=== PATIENT | female | born 1935 | race Caucasian/White ===

== ENCOUNTER 2020-05-09 17:52 | Observation (INO) | payer MEDICARE, OTHER ==
[~2020-05-09] VITALS: Ht 157.5 cm; Wt 93.4 kg
[~2020-05-09 17:52] MED LIST: AMLOD-VALSA-HC1 EACH PO; AMOXICILLIN500 MG PO; ASPIR-LOW81 MG PO; BUMETANIDE1 MG PO; CEFUROXIME250 MG PO; CLARITIN10 M2 PO; CLOPIDOGREL75 MG PO; COLACE 100MG C100 MG PO; COREG 25MG TAB25 MG PO; COREG12.5 MG PO; COREG25 MG PO; COREG6.25 MG PO; COUMADIN 1MG TAB1 MG PO; COUMADIN 5MG TAB5 MG PO; COUMADIN2 MG PO; COUMADIN2.5 MG PO; CYMBALTA 30 MG30 MG PO; CYMBALTA60 MG PO; DITROPAN 5 MG TA5 MG PO; DOXYCYCLINE HY100 MG PO; ELIQUIS2.5 MG PO; FERROUS SULFAT324 MG PO; FERROUS SULFAT325 M2 PO; FERROUS SULFAT325 MG PO; GLUCOTROL5 MG PO; HUMIBID LA TAB600 MG PO; IMURAN TAB 50 M50 MG PO; IMURAN50 MG PO; JANUVIA50 MG PO; K-DUR TAB 10 M10 MEQ PO; K-DUR TAB 20 M20 MEQ PO; LASIX 40 MG TAB40 MG PO; LEVAQUIN250 MG PO; LIPITOR TAB 2020 MG PO; NEURONTIN 100100 MG PO; NORVASC 5 MG TAB5 MG PO; NOVOLOG100 UNIT/1 SC; PLAVIX 75 MG TA75 MG PO; POLYETHYLENE GL17 GM PO; PROAIR HFA8.5 GM INH; PROTONIX40 MG PO; RENO CAPS SOFTGE1 MG PO; ROBITUSSIN AC PO; SINGULAIR10 MG PO; TRAMADOL HCL50 MG PO; TYLENOL 325MG325 MG PO; VITAMIN B-1000 MCG/M SQ; VITAMIN D250000 UNIT PO; WARFARIN SODIUM5 MG PO; ZOFRAN4 MG PO; [UNRECOGNIZED DRUG - CODE] SC
[2020-05-09 19:31] LABS: HEMOGLOBIN 10.7 gm/dl (12.3-15.3); RED BLOOD COUNT 3.29 M/UL (4.00-5.10); WHITE BLOOD COUNT 7.9 K/UL (4.5-11.0)
[2020-05-10 03:20] LABS: HEMOGLOBIN 9.8 gm/dl (12.3-15.3); RED BLOOD COUNT 3.03 M/UL (4.00-5.10); WHITE BLOOD COUNT 6.5 K/UL (4.5-11.0)
== END 2020-05-10 12:00 | disposition home or self-care (01) ==
LOC: ER1 17:52 → CDU 21:30 → MED SURG 4 21:30
PROVIDERS: Emergency Medicine; ADMIT Internal Medicine
DX: T82.838A Hemorrhage due to vascular prosthetic devices, implants and grafts, initial encounter (principal); I13.2 Hypertensive heart and chronic kidney disease with heart failure and with stage 5 chronic kidney disease, or end stage renal disease; E11.22 Type 2 diabetes mellitus with diabetic chronic kidney disease; N18.6 End stage renal disease; I50.32 Chronic diastolic (congestive) heart failure; I48.20 Chronic atrial fibrillation, unspecified; E78.5 Hyperlipidemia, unspecified; E66.9 Obesity, unspecified; K21.9 Gastro-esophageal reflux disease without esophagitis; Z86.73 Personal history of transient ischemic attack (TIA), and cerebral infarction without residual deficits; Z74.01 Bed confinement status; Z68.37 Body mass index [BMI] 37.0-37.9, adult; Z86.718 Personal history of other venous thrombosis and embolism; Z20.822 Contact with and (suspected) exposure to COVID-19; Z86.711 Personal history of pulmonary embolism; Z99.2 Dependence on renal dialysis; Z79.01 Long term (current) use of anticoagulants; Z79.899 Other long term (current) drug therapy; Y83.2 Surgical operation with anastomosis, bypass or graft as the cause of abnormal reaction of the patient, or of later complication, without mention of misadventure at the time of the procedure
CPT/HCPCS: 36415; 80048; 80053; 85025; 85610; 85730; 96374; 99284; C9132; G0378; J3430; U0002

== ENCOUNTER 2021-05-06 16:41 | Inpatient (IN) | payer MEDICARE, OTHER ==
[~2021-05-06] VITALS: Ht 157.5 cm; Wt 85.3 kg
[~2021-05-06 16:41] MED LIST changes: +AMLODIPINE BESYL5 MG PO; -COUMADIN2.5 MG PO; +LACTULOSE10 GM/15 M PO; +LEVOFLOXACIN500 MG PO; +WARFARIN SODIUM2 MG PO
[2021-05-06 18:30] LABS: HEMOGLOBIN 9.6 gm/dl (12.3-15.3); RED BLOOD COUNT 3.14 M/UL (4.00-5.10); WHITE BLOOD COUNT 5.4 K/UL (4.5-11.0)
[2021-05-07] MEDS ORDERED: CLOPIDOGREL75 MG PO (10:41)
[2021-05-08 05:06] LABS: HEMOGLOBIN 9.3 gm/dl (12.3-15.3); RED BLOOD COUNT 3.01 M/UL (4.00-5.10); WHITE BLOOD COUNT 5.6 K/UL (4.5-11.0)
[2021-05-09 02:52] LABS: HEMOGLOBIN 9.2 gm/dl (12.3-15.3); RED BLOOD COUNT 3.02 M/UL (4.00-5.10)
[2021-05-09 02:53] LABS: WHITE BLOOD COUNT 7.3 K/UL (4.5-11.0)
[2021-05-10 05:59] LABS: HEMOGLOBIN 9.3 gm/dl (12.3-15.3); RED BLOOD COUNT 3.04 M/UL (4.00-5.10); WHITE BLOOD COUNT 8.3 K/UL (4.5-11.0)
[2021-05-11 05:52] LABS: RED BLOOD COUNT 2.91 M/UL (4.00-5.10); WHITE BLOOD COUNT 8.7 K/UL (4.5-11.0)
--- NOTE | 2021-05-11 13:02 | NUR ---
report called to [facility] , awaiting ems for transfer
== END 2021-05-11 14:10 | disposition short-term general hospital (02) | DRG 314 ==
LOC: ER1 16:41 → CDU 21:35 → MED SURG 4 21:35
PROVIDERS: Internal Medicine; Internal Medicine Nephrology; Nurse Practitioner; ADMIT Internal Medicine
PROC: 02HV33Z Insertion of Infusion Device into Superior Vena Cava, Percutaneous Approach (ICD-10-PCS; principal; 2021-05-07)
PROC: B548ZZA Ultrasonography of Superior Vena Cava, Guidance (ICD-10-PCS; 2021-05-07)
PROC: 5A1D70Z Performance of Urinary Filtration, Intermittent, Less than 6 Hours Per Day (ICD-10-PCS; 2021-05-07)
PROC: 5A1D70Z Performance of Urinary Filtration, Intermittent, Less than 6 Hours Per Day (ICD-10-PCS; 2021-05-10)
DX: T82.868A Thrombosis due to vascular prosthetic devices, implants and grafts, initial encounter (principal); N18.6 End stage renal disease; I48.20 Chronic atrial fibrillation, unspecified; Z20.822 Contact with and (suspected) exposure to COVID-19; I50.32 Chronic diastolic (congestive) heart failure; I13.2 Hypertensive heart and chronic kidney disease with heart failure and with stage 5 chronic kidney disease, or end stage renal disease; I27.20 Pulmonary hypertension, unspecified; K21.9 Gastro-esophageal reflux disease without esophagitis; E11.22 Type 2 diabetes mellitus with diabetic chronic kidney disease; E78.5 Hyperlipidemia, unspecified; Y83.8 Other surgical procedures as the cause of abnormal reaction of the patient, or of later complication, without mention of misadventure at the time of the procedure; Z99.2 Dependence on renal dialysis; Z79.01 Long term (current) use of anticoagulants; Z79.4 Long term (current) use of insulin; Z86.73 Personal history of transient ischemic attack (TIA), and cerebral infarction without residual deficits; Z87.19 Personal history of other diseases of the digestive system; Z74.01 Bed confinement status; Z86.718 Personal history of other venous thrombosis and embolism; Z86.711 Personal history of pulmonary embolism; Z87.01 Personal history of pneumonia (recurrent); Z90.49 Acquired absence of other specified parts of digestive tract; Z82.49 Family history of ischemic heart disease and other diseases of the circulatory system
CPT/HCPCS: 36415; 71045; 80048; 80053; 82962; 83735; 85025; 85610; 90935; 90937; 93005; 99285; C1752; J2405; J3475; U0002

== ENCOUNTER 2021-07-02 12:49 | Emergency (ER) | payer MEDICARE, OTHER ==
[2021-07-02 14:18] LABS: HEMOGLOBIN 11.3 gm/dl (12.3-15.3); RED BLOOD COUNT 3.46 M/UL (4.00-5.10); WHITE BLOOD COUNT 7.3 K/UL (4.5-11.0)
== END 2021-07-02 17:59 | disposition short-term general hospital (02) ==
LOC: ER1 12:49
PROVIDERS: Physician Assistant
DX: T82.41XA Breakdown (mechanical) of vascular dialysis catheter, initial encounter (principal); I48.91 Unspecified atrial fibrillation; I10 Essential (primary) hypertension; N28.9 Disorder of kidney and ureter, unspecified
CPT/HCPCS: 80053; 85025; 99284

== ENCOUNTER 2021-09-14 14:06 | Inpatient (IN) | payer MEDICARE, OTHER ==
[~2021-09-14] VITALS: Ht 157.5 cm; Wt 104.8 kg
[2021-09-14 15:20] LABS: HEMOGLOBIN 13.9 gm/dl (12.3-15.3); RED BLOOD COUNT 4.52 M/UL (4.00-5.10); WHITE BLOOD COUNT 14.8 K/UL (4.5-11.0)
[2021-09-14] MEDS ORDERED: AMLODIPINE BESYL5 MG PO (18:43)
[2021-09-14] MEDS ORDERED: WARFARIN SODIUM3 MG PO (18:43)
[2021-09-15 05:12] LABS: HEMOGLOBIN 10.9 gm/dl (12.3-15.3); RED BLOOD COUNT 3.6 M/UL (4.00-5.10); WHITE BLOOD COUNT 10.6 K/UL (4.5-11.0)
[2021-09-15] MEDS ORDERED: AMOX TR-K CLV1 EAC3 PO (11:42)
--- NOTE | 2021-09-15 14:23 | NUR ---
R ROMARIO ARRIVED DOWNSTAIRS. I WAS NOT AWARE THEY HAD BEEN CALLED BY CASE MANAGEMENT. IT TOOK A FEW MINUTES TO GET HER READY AND THE GIRISH LIFT HAD TO BE USED TO TRANSFER HER TO HER WHEELCHAIR. TRANSPORTER CAME TO TAKE HER DOWN. DR DE JESUS HAD NOT MADE ROUNDS TO ASK IF HE WANTED THE CHEST WALL DIALYSIS CATHETER REMOVED.
== END 2021-09-15 14:22 | disposition home health service (06) | DRG 871 ==
LOC: ER1 14:06 → M/S 17:34 → CDU 17:34 → M/S 23:36
PROVIDERS: Emergency Medicine; ADMIT Internal Medicine
DX: A41.9 Sepsis, unspecified organism (principal); J18.9 Pneumonia, unspecified organism; N18.6 End stage renal disease; Z20.822 Contact with and (suspected) exposure to COVID-19; I12.0 Hypertensive chronic kidney disease with stage 5 chronic kidney disease or end stage renal disease; Z68.41 Body mass index [BMI] 40.0-44.9, adult; E66.01 Morbid (severe) obesity due to excess calories; W01.0XXA Fall on same level from slipping, tripping and stumbling without subsequent striking against object, initial encounter; E11.22 Type 2 diabetes mellitus with diabetic chronic kidney disease; F17.210 Nicotine dependence, cigarettes, uncomplicated; D69.6 Thrombocytopenia, unspecified; Z74.01 Bed confinement status; Z99.2 Dependence on renal dialysis; Z86.73 Personal history of transient ischemic attack (TIA), and cerebral infarction without residual deficits; Z90.49 Acquired absence of other specified parts of digestive tract
CPT/HCPCS: 36415; 70450; 71045; 72128; 72131; 73030; 73060; 73070; 73100; 80053; 80202; 82550; 82553; 82962; 83036; 83540; 83550; 83605; 83735; 83880; 84100; 84484; 85025; 85027; 85610; 85652; 86140; 87040; 93005; 96365; 96366; 96367; 96375; 97166; 99285; J0696; J2185; J2405; J3370; J7070

== ENCOUNTER 2021-09-27 08:36 | Inpatient (IN) | payer MEDICARE, OTHER ==
[~2021-09-27] VITALS: Ht 157.5 cm; Wt 93.9 kg
[~2021-09-27 08:36] MED LIST changes: +AMOX TR-K CLV1 EAC3 PO; +WARFARIN SODIU2.5 MG PO
[2021-09-27 09:46] LABS: HEMOGLOBIN 9.6 gm/dl (12.3-15.3); RED BLOOD COUNT 3.14 M/UL (4.00-5.10); WHITE BLOOD COUNT 7.5 K/UL (4.5-11.0)
[2021-09-28 06:57] LABS: HEMOGLOBIN 8.7 gm/dl (12.3-15.3); RED BLOOD COUNT 2.79 M/UL (4.00-5.10); WHITE BLOOD COUNT 7.9 K/UL (4.5-11.0)
[2021-09-29 06:00] LABS: HEMOGLOBIN 9.4 gm/dl (12.3-15.3); RED BLOOD COUNT 2.96 M/UL (4.00-5.10)
[2021-09-30 09:04] LABS: HEMOGLOBIN 8.8 gm/dl (12.3-15.3); RED BLOOD COUNT 2.87 M/UL (4.00-5.10); WHITE BLOOD COUNT 6.8 K/UL (4.5-11.0)
[2021-10-01 04:33] LABS: HEMOGLOBIN 8.8 gm/dl (12.3-15.3); RED BLOOD COUNT 2.84 M/UL (4.00-5.10)
[2021-10-01 04:40] LABS: WHITE BLOOD COUNT 9.2 K/UL (4.5-11.0)
--- NOTE | 2021-10-01 10:38 | NUR ---
CONFIRMED WITH ZEE LUNSFORD. PT CLEARED TO HAVE CT GUIDED BIOPSY. CT DEPT MADE AWARE. NAD
--- NOTE | 2021-10-01 10:44 | NUR ---
PT BACK TO ROOM FROM BIOPSY. OR NURSE IN ROOM TO MONITOR PT. NAD.
--- NOTE | 2021-10-01 11:48 | NUR ---
NAD, VSS, PT RESTING WITH EYES CLOSED.
--- NOTE | 2021-10-01 13:49 | NUR ---
NAD, VSS, NO S/S OF BLEEDING NOTED AT BIOPSY INSERTION SITE. PT AOX4 TALKING ON PHONE TO FAMILY.
[2021-10-03 15:52] LABS: HEMOGLOBIN 10.2 gm/dl (12.3-15.3); RED BLOOD COUNT 3.28 M/UL (4.00-5.10); WHITE BLOOD COUNT 28.4 K/UL (4.5-11.0)
[2021-10-04 04:12] LABS: HEMOGLOBIN 8.2 gm/dl (12.3-15.3); RED BLOOD COUNT 2.65 M/UL (4.00-5.10)
[2021-10-04 15:52] LABS: BORDETELLA PARAPERTUSSIS Not Detected (Not Detectd); BORDETELLA PERTUSSIS Not Detected (Not Detectd); CHLAMYDIA PNEUMONIAE Not Detected (Not Detectd); CORONAVIRUS HKU1 Not Detected (Not Detectd); CORONAVIRUS NL63 Not Detected (Not Detectd); CORONAVIRUS OC43 Not Detected (Not Detectd); CORONOAVIRUS 229E Not Detected (Not Detectd); HUMAN METAPNEUMOVIRUS Not Detected (Not Detectd); HUMAN RHINOVIRUS/ENTEROVIRUS Not Detected (Not Detectd); INFLUENZA A Not Detected (Not Detectd); INFLUENZA B Not Detected (Not Detectd); MYCOPLASMA PNEUMONIAE Not Detected (Not Detectd); PARAINFLUENZA VIRUS 1 Not Detected (Not Detectd); PARAINFLUENZA VIRUS 2 Not Detected (Not Detectd); PARAINFLUENZA VIRUS 3 Not Detected (Not Detectd); PARAINFLUENZA VIRUS 4 Not Detected (Not Detectd); RESPIRATORY SYNCYTIAL VIRUS Not Detected (Not Detectd)
[2021-10-04 15:56] LABS: WHITE BLOOD COUNT 29.9 K/UL (4.5-11.0)
[2021-10-04 16:15] LABS: HEMOGLOBIN 10.8 gm/dl (12.3-15.3); RED BLOOD COUNT 3.55 M/UL (4.00-5.10)
[2021-10-04 17:20] LABS: SARS-CoV-2 DETECTED (Not Detectd)
[2021-10-05 04:43] LABS: HEMOGLOBIN 10.5 gm/dl (12.3-15.3); RED BLOOD COUNT 3.41 M/UL (4.00-5.10); WHITE BLOOD COUNT 25.3 K/UL (4.5-11.0)
[2021-10-06 03:05] LABS: HEMOGLOBIN 9.2 gm/dl (12.3-15.3)
[2021-10-06 03:09] LABS: RED BLOOD COUNT 2.98 M/UL (4.00-5.10); WHITE BLOOD COUNT 13.3 K/UL (4.5-11.0)
[2021-10-07 02:50] LABS: HEMOGLOBIN 9.9 gm/dl (12.3-15.3); RED BLOOD COUNT 3.26 M/UL (4.00-5.10)
[2021-10-07 03:34] LABS: WHITE BLOOD COUNT 16.9 K/UL (4.5-11.0)
[2021-10-08 01:46] LABS: RED BLOOD COUNT 3.56 M/UL (4.00-5.10); WHITE BLOOD COUNT 17.7 K/UL (4.5-11.0)
[2021-10-09 03:08] LABS: HEMOGLOBIN 10.2 gm/dl (12.3-15.3); RED BLOOD COUNT 3.26 M/UL (4.00-5.10)
[2021-10-09 03:10] LABS: WHITE BLOOD COUNT 10.9 K/UL (4.5-11.0)
[2021-10-10 02:01] LABS: HEMOGLOBIN 10.7 gm/dl (12.3-15.3); RED BLOOD COUNT 3.55 M/UL (4.00-5.10)
[2021-10-10 02:40] LABS: WHITE BLOOD COUNT 15.4 K/UL (4.5-11.0)
[2021-10-11 02:28] LABS: HEMOGLOBIN 10.8 gm/dl (12.3-15.3); RED BLOOD COUNT 3.58 M/UL (4.00-5.10); WHITE BLOOD COUNT 17.6 K/UL (4.5-11.0)
[2021-10-11] MEDS ORDERED: MIDODRINE HCL2.5 MG PO (16:48)
[2021-10-11] MEDS ORDERED: AMIODARONE HCL200 MG PO (16:48)
== END 2021-10-11 18:06 | disposition home or self-care (01) | DRG 823 ==
LOC: ER1 08:36 → MED SURG 4 12:58 → PROG CARE 12:58 → CDU 12:58 → MED SURG 4 14:06 → PROG CARE 10-04 02:15
PROVIDERS: Internal Medicine; Internal Medicine Infectious Disease; Internal Medicine Nephrology; Physician Assistant; Physician Assistant Medical; ADMIT Internal Medicine
PROC: 3E043XZ Introduction of Vasopressor into Central Vein, Percutaneous Approach (ICD-10-PCS; principal; 2021-09-27)
PROC: 3E03329 Introduction of Other Anti-infective into Peripheral Vein, Percutaneous Approach (ICD-10-PCS; 2021-09-27)
PROC: 07BD3ZX Excision of Aortic Lymphatic, Percutaneous Approach, Diagnostic (ICD-10-PCS; 2021-09-27)
PROC: 8E0ZXY6 Isolation (ICD-10-PCS; 2021-09-27)
PROC: 5A1D70Z Performance of Urinary Filtration, Intermittent, Less than 6 Hours Per Day (ICD-10-PCS; 2021-09-28)
PROC: 5A1D70Z Performance of Urinary Filtration, Intermittent, Less than 6 Hours Per Day (ICD-10-PCS; 2021-09-30)
PROC: 5A1D70Z Performance of Urinary Filtration, Intermittent, Less than 6 Hours Per Day (ICD-10-PCS; 2021-10-02)
PROC: 30233N1 Transfusion of Nonautologous Red Blood Cells into Peripheral Vein, Percutaneous Approach (ICD-10-PCS; 2021-10-04)
PROC: 5A1D70Z Performance of Urinary Filtration, Intermittent, Less than 6 Hours Per Day (ICD-10-PCS; 2021-10-05)
PROC: 5A1D70Z Performance of Urinary Filtration, Intermittent, Less than 6 Hours Per Day (ICD-10-PCS; 2021-10-08)
PROC: 5A1D70Z Performance of Urinary Filtration, Intermittent, Less than 6 Hours Per Day (ICD-10-PCS; 2021-10-11)
DX: C85.10 Unspecified B-cell lymphoma, unspecified site (principal); A41.9 Sepsis, unspecified organism; R65.21 Severe sepsis with septic shock; U07.1 COVID-19; J69.0 Pneumonitis due to inhalation of food and vomit; N18.6 End stage renal disease; J96.21 Acute and chronic respiratory failure with hypoxia; J12.82 Pneumonia due to coronavirus disease 2019; J15.9 Unspecified bacterial pneumonia; I48.20 Chronic atrial fibrillation, unspecified; I50.32 Chronic diastolic (congestive) heart failure; I13.2 Hypertensive heart and chronic kidney disease with heart failure and with stage 5 chronic kidney disease, or end stage renal disease; I48.21 Permanent atrial fibrillation; E87.1 Hypo-osmolality and hyponatremia; C78.89 Secondary malignant neoplasm of other digestive organs; D62 Acute posthemorrhagic anemia; L89.152 Pressure ulcer of sacral region, stage 2; L89.322 Pressure ulcer of left buttock, stage 2; L89.312 Pressure ulcer of right buttock, stage 2; E78.5 Hyperlipidemia, unspecified; K21.9 Gastro-esophageal reflux disease without esophagitis; E87.5 Hyperkalemia; R79.1 Abnormal coagulation profile; S30.1XXA Contusion of abdominal wall, initial encounter; D63.1 Anemia in chronic kidney disease; L89.892 Pressure ulcer of other site, stage 2; E11.22 Type 2 diabetes mellitus with diabetic chronic kidney disease; E66.01 Morbid (severe) obesity due to excess calories; R53.81 Other malaise; W18.30XA Fall on same level, unspecified, initial encounter; Z79.01 Long term (current) use of anticoagulants; Z99.2 Dependence on renal dialysis; Z74.01 Bed confinement status; Z86.718 Personal history of other venous thrombosis and embolism; Z86.711 Personal history of pulmonary embolism; Z86.73 Personal history of transient ischemic attack (TIA), and cerebral infarction without residual deficits; Z90.49 Acquired absence of other specified parts of digestive tract; Z80.9 Family history of malignant neoplasm, unspecified; Z84.89 Family history of other specified conditions; Z99.3 Dependence on wheelchair; Z68.34 Body mass index [BMI] 34.0-34.9, adult; Z88.8 Allergy status to other drugs, medicaments and biological substances
CPT/HCPCS: 36415; 36430; 71045; 71260; 72131; 73030; 77012; 80048; 80053; 80202; 82550; 82553; 82607; 82728; 82746; 82962; 83540; 83550; 83605; 83735; 84484; 85025; 85610; 85730; 86140; 86850; 86900; 86901; 86920; 87040; 87081; 87633; 88341; 88342; 88360; 88365; 92526; 92610; 93005; 94640; 94664; 94760; 97161; 99285; A6212; J1100; J1160; J2185; J2250; J2270; J2310; J2370; J2405; J2760; J3010; J3370; J7030; J7070; P9016; P9047; Q9967

== ENCOUNTER 2021-10-15 08:53 | Emergency (ER) | payer MEDICARE, OTHER ==
[~2021-10-15 08:53] MED LIST changes: +AMIODARONE HCL200 MG PO; +MIDODRINE HCL2.5 MG PO
[2021-10-15 09:47] LABS: HEMOGLOBIN 12.2 gm/dl (12.3-15.3); RED BLOOD COUNT 3.91 M/UL (4.00-5.10); WHITE BLOOD COUNT 19.6 K/UL (4.5-11.0)
[2021-10-15] MEDS ORDERED: PERCOCET 5/325 T1 EA PO (12:28)
== END 2021-10-15 13:42 | disposition home or self-care (01) ==
LOC: ER1 08:53
PROVIDERS: Family Medicine
DX: R11.10 Vomiting, unspecified (principal); E11.9 Type 2 diabetes mellitus without complications; I25.10 Atherosclerotic heart disease of native coronary artery without angina pectoris; I10 Essential (primary) hypertension; Z99.2 Dependence on renal dialysis
CPT/HCPCS: 80053; 83605; 83690; 85025; 96374; 99284; J2405

== ENCOUNTER 2021-10-19 07:09 | Observation (INO) | payer MEDICARE, OTHER ==
[~2021-10-19] VITALS: Ht 157.5 cm; Wt 87.1 kg
[~2021-10-19 07:09] MED LIST changes: +PERCOCET 5/325 T1 EA PO
[2021-10-19 08:15] LABS: HEMOGLOBIN 10.7 gm/dl (12.3-15.3); RED BLOOD COUNT 3.52 M/UL (4.00-5.10); WHITE BLOOD COUNT 11.5 K/UL (4.5-11.0)
[2021-10-19 08:43] LABS: BUN/CREATININE RATIO 15 (0-10)
[2021-10-19] MEDS ORDERED: AMLODIPINE BESYL5 MG PO (10:50)
[2021-10-19] MEDS ORDERED: PERCOCET 5/325 T1 EA PO (11:43)
[2021-10-19] MEDS ORDERED: STOOL SOFTENER100 MG PO (11:44)
[2021-10-19] MEDS ORDERED: ACETAMINOPHEN325 MG PO (11:44)
[2021-10-19] MEDS ORDERED: MIRALAX17 GM PO (11:45)
[2021-10-20 05:59] LABS: RED BLOOD COUNT 2.93 M/UL (4.00-5.10); WHITE BLOOD COUNT 9.8 K/UL (4.5-11.0)
[2021-10-21 06:58] LABS: HEMOGLOBIN 10.1 gm/dl (12.3-15.3); WHITE BLOOD COUNT 9.1 K/UL (4.5-11.0)
[2021-10-21 06:59] LABS: RED BLOOD COUNT 3.27 M/UL (4.00-5.10)
[2021-10-21] MEDS ORDERED: GLUTOSE 1537.5 GM PO (10:09)
== END 2021-10-21 12:40 | disposition home or self-care (01) ==
LOC: ER1 07:09 → CDU 09:40 → M/S 10-20 00:16
PROVIDERS: Physician Assistant; Physician Assistant Medical; ADMIT Internal Medicine
DX: E11.649 Type 2 diabetes mellitus with hypoglycemia without coma (principal); I48.20 Chronic atrial fibrillation, unspecified; I13.2 Hypertensive heart and chronic kidney disease with heart failure and with stage 5 chronic kidney disease, or end stage renal disease; E11.22 Type 2 diabetes mellitus with diabetic chronic kidney disease; N18.6 End stage renal disease; I50.32 Chronic diastolic (congestive) heart failure; C83.30 Diffuse large B-cell lymphoma, unspecified site; E78.5 Hyperlipidemia, unspecified; D64.9 Anemia, unspecified; Z99.2 Dependence on renal dialysis; Z86.73 Personal history of transient ischemic attack (TIA), and cerebral infarction without residual deficits; Z86.718 Personal history of other venous thrombosis and embolism
CPT/HCPCS: 36415; 71045; 80048; 80053; 82550; 82553; 82962; 83690; 83735; 84100; 84484; 85025; 85027; 93005; 96374; 96376; 99285; C9113; G0378; P9047

== ENCOUNTER 2021-10-31 16:40 | Inpatient (IN) | payer MEDICARE, OTHER ==
[~2021-10-31] VITALS: Ht 157.5 cm; Wt 85.7 kg
[~2021-10-31 16:40] MED LIST changes: +ACETAMINOPHEN325 MG PO; +GLUTOSE 1537.5 GM PO; +MIRALAX17 GM PO; +STOOL SOFTENER100 MG PO
[2021-10-31 19:47] LABS: HEMOGLOBIN 11.6 gm/dl (12.3-15.3); RED BLOOD COUNT 3.76 M/UL (4.00-5.10); WHITE BLOOD COUNT 18.8 K/UL (4.5-11.0)
[2021-11-01 01:37] LABS: RED BLOOD COUNT 3.56 M/UL (4.00-5.10); WHITE BLOOD COUNT 15.2 K/UL (4.5-11.0)
[2021-11-01] MEDS ORDERED: GLIPIZIDE5 MG PO (11:44)
[2021-11-01] MEDS ORDERED: HYDROCODONE-AC1 EACH PO (11:45)
--- NOTE | 2021-11-01 17:47 | NUR ---
PT HAS NOT VOIDED FROM [phone]. MADE DR. RODRIGUEZ AWARE. DID A BLADDER SCAN AND IT ONLY SHOWED 48CC IN PTS BLADDER.
--- NOTE | 2021-11-02 01:18 | NUR ---
CONTACTED DR. 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 LEFT ARM INFILTRATED WHILE ADMINISTERING ALBUMIN FOR HYPOTENSION AND HURT FROM PRIOR ACCIDENT WITH RTEC. MULTIBLE ATTEMPTS MADE TO START A NEW IV FOR PATIENT WAS UNSUCCESSFUL. ADMINISTERED GLUCOSE GEL BUT PATIENT VOMITED SHORTLY AFTER. LAST FSBG 70, LAST SET OF VITALS B/P WAS 110/88. CONTACTED AGUILA KNOX RN IN ER TO PLEASE DO A ULTRASOUND GUIDED IV, HE AGREED BUT ESITMATED ARRIVAL TIME TO FLOOR IS UNKNOWN. DR QUIROZ DENIED REQUEST TO HAVE PATIENT TRANSFERRED TO PCU FOR CLOSER MONITORING. NO DISTRESS NOTED AT THIS TIME, WILL CONTINUE TO MONITOR PATIENT.
--- NOTE | 2021-11-02 04:55 | NUR ---
CONTACTED DR. QUIROZ AT 0317 FOR B/P OF , HE ORDERED A 500CC BOLUS FOR PATIENT, INFORMED DR QUIROZ THAT DR. GALLEGO HAD ASSESSED THE PATIENT EARILER IN SHIFT AND WANTED IV FLUID AND IV BOLUS AVOIDED FOR HYPOTENSION AND THAT ALBUMIN HUMAN HAD ALREADY BEEN GIVEN AND WUOLD NOT BE ABLE TO GET GIVEN AGAIN UNTIL 0517 PER Q6H ORDER. HE STATED, "YOU ARE NOT TALKING TO DR. GALLEGO, GIVE THE PATIENT THE BOLUS." I CONTACTED AYER FOR GUIDENCE AND SHE INSTRUCTED ME TO CALL WHO IS CLINICAL DOCUMENT IMPROVEMENT EDUCATOR FOR DR. GALLEGO. DR. GALLEGO WAS CLINICAL DOCUMENT IMPROVEMENT EDUCATOR AND CONTACTED VIA PHONE AND HE REQUESTED PATIENT NOT BE BOLUSED DUE TO +4 EDEMA, DIALYSIS, NO OUTPUT, AND TO MOVE THE PATIENT TO PCU TO START LEVOPHED. SPOKE WITH GOLF SUPERINTENDENT LORRAINE WHO STATED RICHIE REFUSED TO MOVE ANY PATIENTS IN THE PCU UNIT TO OPEN A BED SO SHE STATED TO MOVE PATIENT TO ICU. PATIENT WAS TRANSFERRED TO ICU.
[2021-11-02 08:37] LABS: RED BLOOD COUNT 3.54 M/UL (4.00-5.10)
[2021-11-02 08:53] LABS: WHITE BLOOD COUNT 23.7 K/UL (4.5-11.0)
[2021-11-03 08:00] LABS: HEMOGLOBIN 10.8 gm/dl (12.3-15.3); RED BLOOD COUNT 3.48 M/UL (4.00-5.10); WHITE BLOOD COUNT 26.2 K/UL (4.5-11.0)
== END 2021-11-03 21:38 | disposition expired | DRG 871 ==
LOC: ER1 16:40 → M/S 22:10 → CDU 22:10 → M/S 23:56 → CCU 11-02 04:55
PROVIDERS: Emergency Medicine; Internal Medicine; Internal Medicine Pulmonary Disease; ADMIT Family Medicine
PROC: 3E03029 Introduction of Other Anti-infective into Peripheral Vein, Open Approach (ICD-10-PCS; principal; 2021-11-01)
PROC: 3E043XZ Introduction of Vasopressor into Central Vein, Percutaneous Approach (ICD-10-PCS; 2021-11-02)
PROC: 05HN33Z Insertion of Infusion Device into Left Internal Jugular Vein, Percutaneous Approach (ICD-10-PCS; 2021-11-02)
DX: A41.9 Sepsis, unspecified organism (principal); J18.9 Pneumonia, unspecified organism; N18.6 End stage renal disease; R65.21 Severe sepsis with septic shock; C85.10 Unspecified B-cell lymphoma, unspecified site; I48.21 Permanent atrial fibrillation; I13.2 Hypertensive heart and chronic kidney disease with heart failure and with stage 5 chronic kidney disease, or end stage renal disease; Z66 Do not resuscitate; Z99.2 Dependence on renal dialysis; Z51.5 Encounter for palliative care; Z74.01 Bed confinement status; I50.32 Chronic diastolic (congestive) heart failure; N30.00 Acute cystitis without hematuria; J96.11 Chronic respiratory failure with hypoxia; E46 Unspecified protein-calorie malnutrition; L89.222 Pressure ulcer of left hip, stage 2; I27.20 Pulmonary hypertension, unspecified; L89.152 Pressure ulcer of sacral region, stage 2; E11.22 Type 2 diabetes mellitus with diabetic chronic kidney disease; E88.09 Other disorders of plasma-protein metabolism, not elsewhere classified; D63.1 Anemia in chronic kidney disease; E11.649 Type 2 diabetes mellitus with hypoglycemia without coma; E78.5 Hyperlipidemia, unspecified; I48.0 Paroxysmal atrial fibrillation; L89.322 Pressure ulcer of left buttock, stage 2; E66.9 Obesity, unspecified; L89.212 Pressure ulcer of right hip, stage 2; L89.892 Pressure ulcer of other site, stage 2; E87.6 Hypokalemia; K21.9 Gastro-esophageal reflux disease without esophagitis; L89.312 Pressure ulcer of right buttock, stage 2; R13.10 Dysphagia, unspecified; Z80.8 Family history of malignant neoplasm of other organs or systems; B96.20 Unspecified Escherichia coli [E. coli] as the cause of diseases classified elsewhere; Z86.73 Personal history of transient ischemic attack (TIA), and cerebral infarction without residual deficits; Z86.718 Personal history of other venous thrombosis and embolism; Z86.711 Personal history of pulmonary embolism; Z90.49 Acquired absence of other specified parts of digestive tract; Z98.890 Other specified postprocedural states; Z79.899 Other long term (current) drug therapy; Z86.16 Personal history of COVID-19; Z82.49 Family history of ischemic heart disease and other diseases of the circulatory system; Z85.038 Personal history of other malignant neoplasm of large intestine; Z68.34 Body mass index [BMI] 34.0-34.9, adult
CPT/HCPCS: 36415; 71045; 74018; 80053; 80162; 80202; 81001; 82550; 82553; 82962; 83036; 83605; 83735; 83880; 84100; 84443; 84484; 85025; 85610; 85652; 86140; 87040; 87077; 87081; 87086; 87186; 92610; 93005; 93971; 96374; 96375; 99285; J0692; J1160; J1650; J2185; J2270; J2370; J2405; J2543; J3370; J7030; J7070; P9047